=== PATIENT | female | born 1935 | race Caucasian/White ===

== ENCOUNTER 2019-05-24 16:47 | Emergency (ER) | payer MEDICARE, OTHER ==
--- OUTSIDE RECORDS SUMMARY | 2019-05-24 16:59 | XMS REPORT | Continuity of Care Document ---
:1935 External Reference #:[id number] Author Name CHRISTIAN Diamond (transmitted by agent of provider Tanner Mercado) Address [address] [place] [address] Care Team Providers Name Role Phone Vladimir Jefferson M.D. - Urology Care Team Information Medical Bill Processor Mary Navarro PA - Physician Urgent Care Nurse Practitioner Care Team Information Medical Bill Processor [phone] Problems Active Problems Provider Date Fracture of bone of hip region Onset: 04/02/2018 Chronic obstructive lung disease Onset: 04/02/2018 Essential hypertension Onset: 01/30/2011 Hyperlipidemia Onset: 01/30/2011 Hypothyroidism Onset: 01/30/2011 Gastroesophageal reflux disease Onset: 11/03/2017 Marshall's esophagus Onset: 11/03/2017 Gastro-esophageal reflux disease with esophagitis Onset: 11/03/2017 Osteoporosis Onset: 01/30/2011 Hypo-osmolality and or hyponatremia Onset: 01/30/2011 Recurrent urinary tract infection CHRISTIAN Diamond Onset: 10/25/2018 Bladder muscle dysfunction - overactive CHRISTIAN Diamond Onset: 10/25/2018 Hearing loss CHRISTIAN Diamond Onset: 10/25/2018 Asthma CHRISTIAN Diamond Onset: 01/04/2019 Urinary tract infectious disease CHRISTIAN Diamond Onset: 01/04/2019 Difficulty breathing CHRISTIAN Diamond Onset: 04/30/2019 Altered mental status CHRISTIAN Diamond Onset: 04/30/2019 Muscle weakness CHRISTIAN Diamond Onset: 04/30/2019 Myocardial infarction CHRISTIAN Diamond Onset: 04/30/2019 Acute renal failure syndrome CHRISTIAN Diamond Onset: 04/30/2019 Congestive heart failure CHRISTIAN Diamond Onset: 04/30/2019 Social History Type Date Description Comments Sex Unknown ETOH Use Denies alcohol use Tobacco Use Reviewed: 07/16/16 Patient has never smoked Smoking Status Reviewed: 12/30/18 Patient has never smoked Exercise Type/Frequency 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 Allergies, Adverse Reactions, Alerts Active Allergies Reaction Severity Comments Date Penicillins Free Text Severe 04/03/2018 Ciprofloxacin 04/03/2018 Sulfa Antibiotics Free Text Moderate 04/03/2018 Clarithromycin Free Text Moderate 04/03/2018 Adhesives Free Text Moderate 04/03/2018 Medications Active Medications SIG Qnty Indications Ordering Date Provider Aspirin Childrens 1 by mouth every 30units [place] 05/12/2019 81mg day MD Aman Chewtabs Doxycycline 1 by mouth twice a 20caps L03.116 [place] 05/12/2019 Monohydrate day MD Aman 100mg Capsules Compression Hose wear daily as 2Pairs I87.2 [place] 05/12/2019 directed MD Aman Omeprazole Take One Capsule 90caps [place] 11/26/2012 20mg By Mouth Every Day MD Aman Capsules DR Edgard Singer one inhalation 1units J44.9 [place] twice a day MD Aman 500-50mcg/Dose Aerosol Ventolin HFA J44.9 Unknown 108(90Base) mcg/Act Aerosol Metoprolol Tartrate Take One Tablet By 180tabs I10 Deshawn Mouth Twice A Day MD Aman 25mg Tablets Levothyroxine Sodium Take One Tablet By 90tabs E03.9 [place] Mouth Every Day MD Aman 50mcg Tablets Montelukast Sodium take one tablet by 90tabs Deshawn 10mg mouth every day MD Aman Tablets Atorvastatin Calcium Unknown 80mg Tablets Furosemide Unknown 40mg Tablets Eliquis Take One Tablet By Unknown 2.5mg Tablets Mouth Two Times A Day History Medications Levaquin Deshawn Newton, 12/21/2018 - 500mg Tablets 12/29/2018 Nitrofurantoin 1 by mouth 20caps N39.0 Deshawn Newton 12/15/2018 - Macrocrystal twice a day 12/29/2018 100mg Capsules Immunizations CPT Code Status Date Vaccine Lot # 44417 Given 01/11/2019 Fluzone High Dose 31053 Given 12/25/2017 Fluzone High Dose 11700 Given 12/19/2016 Pneumococcal Conjugate Vaccine 13 Valent For Intramuscular Use 78954 Given 12/19/2016 Fluzone High Dose 60892 Given 12/19/2015 Fluzone High Dose 43517 Given 01/05/2014 Fluzone High Dose 55475 Given 01/07/2013 Influenza Virus 3Yrs & Over 51192 Given 05/02/2011 Tdap - Tetanus/Diptheria/Acellular Pertussis 68666 Given 02/20/2010 Tetanus And Diptheria (Td) For Adult Use Preservative Free 46254 Given 12/29/2007 Pneumonia Vaccine 45164 Given 12/29/2007 Influenza Virus 3Yrs & Over 22921 Given 01/30/2006 Influenza Virus 3Yrs & Over 03986 Given 01/08/2005 Influenza Virus 3Yrs & Over 53233 Given 01/07/2002 Influenza Virus 3Yrs & Over 61137 Given 01/07/2000 Influenza Virus 3Yrs & Over 49304 Given 02/08/1999 Influenza Virus 3Yrs & Over 88697 Given 04/07/1995 Pneumonia Vaccine Vital Signs Date Vital Result Comment 05/12/2019 11:08am Weight 145.25 lb Heart Rate 87 /min BP Systolic Sitting 140 mmHg BP Diastolic Sitting 60 mmHg Body Temperature 97.8 F O2 % BldC Oximetry 96 % 04/30/2019 9:14am Heart Rate 48 /min BP Systolic Sitting 108 mmHg BP Diastolic Sitting 60 mmHg O2 % BldC Oximetry 90 % Results Test Acquired Date Facility Test Result H/L Range Note Urine Culture And 12/15/2018 [facility] Urine SEE RESULT 1 , [address] [place] [address] [phone] 1 [id number] 2 SEE RESULT BELOW Name: GIANNA MARTINES : [address]: Mary GONZALES Acct: [id number] Unit: [id number] AGE: 83 Location: [facility] Re12/15/18 SEX: F Status: REG REF SPEC: [id number] GEORGE: 12/15/18-[address]: Mary GOZNALES REQ: [id number] RECD: 12/15/18 STATUS: COMP _ SOURCE: URINE SPDESC: ORDERED: Urine Culture COMMENTS: [id number] QUERIES: Urine Source: Random Procedure Result Reported Site Urine Culture Final 12/19/18- 0759 ML Organism 1 STREP AGALACTIAE - (GROUP B) [place] Count >100,000 (Many) CFU/ML Susceptibility testing of penicillins and other B-lactams approved by FDA for treatment of Streptococcus pyogenes (Group A Strep) and Streptococcus agalactiae (Group B Strep) is not necessary for clinical purposes and need not be done routinely, since as with vancomycin, resistant strains have not been recognized. (CLSI L259-Q00;p.66) Positive isolates will be saved for one week. Please call the Microbiology Laboratory if further susceptibility testing is needed. * This is an updated result. * A prior result that was reported as final has been changed. Report corrected on: 12/19/18 0758 1. STREP AGALACTIAE - (GROUP B) M.I.C. RX --------- ------ Ampicillin <=0.25 S Penicillin <=0.12 S Levofloxacin 1 S Linezolid 2 S * Moxifloxacin 0.5 S * Quinupristin/Dalfopristin <=0.25 S CONTINUED ON NEXT PAGE DEPARTMENT OF PATHOLOGY, [address] [place] [address] Gabriel Colorado M.D. Director JAMES # [id number] Patient: MARTINESGIANNA [id number] (Continued) Specimen: [id number] Collected: 12/15/18-1615 Received: 12/15/18 (Continued) Procedure Result Reported Site Urine Culture Final (continued) 12/19/18- 075 1. STREP AGALACTIAE - (GROUP B) (continued) M.I.C. RX --------- ------ Tetracycline >=16 R Tigecycline <=0.12 S Vancomycin <=0.5 S Imipenem-Deduced S * Ampicillin/Sulbactam-Deduced S Cefazolin-Deduced S * These antibiotics are not available in the [facility] Formulary Contact the Microbiology Department for any additional antibiotic reporting. * ML - Main Lab . END OF REPORT DEPARTMENT OF PATHOLOGY, [address] [place] [address] Gabriel Colorado M.D. Director [facility] # [id number] Procedures Date Code Description Status 01/18/2019 [id number] Diabetic Retinal Eye Exam Completed 04/03/2016 [id number] Mammogram Completed 11/21/2013 [id number] Colonoscopy Completed Medical Devices Description No Information Available Encounters Type Date Location Provider Dx Diagnosis Office Visit 04/30/2019 [facility] Primary Care CHRISTIAN Diamond M62.81 Muscle weakness 9:15a (generalized) R06.00 Dyspnea, unspecified R00.1 Bradycardia, unspecified R41.82 Altered mental status, unspecified Office Visit 01/19/2019 9:00a [facility] Dermatology AT Roger Dao, 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 L82.1 Other seborrheic keratosis Z08 Encntr for follow-up exam after trtmt for malignant neoplasm Z85.828 Personal history of other malignant neoplasm of skin Office Visit 12/29/2018 2:15p [facility] Primary Care CHRISTIAN Diamond N39.0 Urinary tract infection, site not specified H90.2 Conductive hearing loss, unspecified Office Visit 12/15/2018 3:45p [facility] Primary CHRISTIAN Diamond R35.0 Frequency of Care micturition N39.0 Urinary tract infection, site not specified Assessments Date Code Description Provider 05/12/2019 I21.9 Acute myocardial infarction, unspecified CHRISTIAN Diamond 05/12/2019 I50.9 Heart failure, unspecified CHRISTIAN Diamond 05/12/2019 N17.9 Acute kidney failure, unspecified CHRISTIAN Diamond 05/12/2019 I87.2 Venous insufficiency (chronic) (peripheral) CHRISTIAN Diamond 05/12/2019 L03.116 Cellulitis of left lower limb CHRISTIAN Diamond 04/30/2019 M62.81 Muscle weakness CHRISTIAN Diamond 04/30/2019 R06.00 Dyspnea CHRISTIAN Diamond 04/30/2019 R00.1 Bradycardia CHRISTIAN Diamond 04/30/2019 R41.82 Altered mental status CHRISTIAN Diamond 04/05/2019 Z00.01 Adult health examination CHRISTIAN Diamond 01/19/2019 L20.84 Intrinsic (allergic) eczema Roger Dao MD 01/19/2019 L82.1 Other seborrheic keratosis Roger Dao MD 01/19/2019 Z08 Encounter for follow-up examination after Roger Dao MD completed treatment for malignant neoplasm 01/19/2019 Z85.828 Personal history of other malignant neoplasm of Roger Dao MD skin 12/29/2018 N39.0 Urinary tract infection, site not specified CHRISTIAN Diamond 12/29/2018 H90.2 Conductive hearing loss, unspecified CHRISTIAN Diamond 12/15/2018 R35.0 Frequency of micturition CHRISTIAN Diamond 12/15/2018 N39.0 Urinary tract infection, site not specified CHRISTIAN Diamond Plan of Treatment Future Appointment(s):05/26/2019 8:00 am - CHRISTIAN Diamond at [facility] Primary Care08/2019 10:15 am - CHRISTIAN Diamond at [facility] Primary Care01/19/2020 8:00 am - Roger Dao MD at [facility] Dermatology AT Fnqdthys02/12/2020 - Mary Navarro PAI21.9 Acute myocardial infarction, unspecifiedReferral:No Doctor SelectedNo Doctor SelectedNo Doctor SelectedFollow up:2 xxzecO34.9 Heart failure, gltjwhqmlytT17.9 Acute kidney failure, unspecifiedNew Labs:Basic Metabolic Panel , Ordered: 05/12/19Magnesium, Ordered: 05/12/19Calcium, Ordered: 05/12/19Liver Function Panel, Ordered: 05/12/19CBC Auto Diff, Ordered: 05/12/19I87.2 Venous insufficiency (chronic) (peripheral)New Medication:Compression Hose - wear daily as rmvzwywwQ33.116 Cellulitis of left lower limbNew Medication: Doxycycline Monohydrate 100 mg - 1 by mouth twice a day Functional Status Functional Condition Comment Date Status Bifocal glasses Active Hearing Aid in Both ears Active Mental Status Description No Information Available Referrals Refer to Reason for Referral Status Appt Date Created Created Created
--- OUTSIDE RECORDS SUMMARY | 2019-05-24 16:59 | XMS REPORT | Continuity of Care Document ---
:1935 External Reference #:[id number] Author Name Susu Delgado, MSN, MATTRESS FILLING MACHINE TENDER Address [address] [place] [address] Care Team Providers Name Role Phone Mary Navarro PA - Physician Slater Apprentice Care Team Information Fire Suppression Captain Problems Active Problems Provider Date Pure hypercholesterolemia Onset: 12/08/2012 Bradycardia, unspecified Susu Delgado, Onset: 05/19/2019 MSN, M[employer]ESS FILLING MACHINE TENDER Coronary arteriosclerosis in tribe Susu Delgado, Onset: 05/19/2019 artery MSN, M[employer]ESS FILLING MACHINE TENDER Heart failure, unspecified Susu Delgado, Onset: 05/19/2019 MSN, MATTRESS FILLING MACHINE TENDER Chronic kidney disease stage 4 Susu Delgado, Onset: 05/19/2019 MSN, MATTRESS FILLING MACHINE TENDER Bladder muscle dysfunction - overVladimir Russo M.D. Onset: 2018 Essential hypertension Susu Delgado, Onset: 03/14/2015 MSN, MATTRESS FILLING MACHINE TENDER Edema River Hood M.D., Onset: 02/28/2014 [facility] Carotid artery occlusion River Hood M.D., Onset: 01/06/2013 [facility] Aortic valve disorder River Hood M.D., Onset: 01/06/2013 [facility] Cardiovascular symptoms River Hood M.D., Onset: 12/08/2012 [facility] Electrocardiogram abnormal River Hood M.D., Onset: 12/08/2012 [facility] Benign essential hypertension River Hood M.D., Onset: 12/08/2012 [facility] Social History Type Date Description Comments Sex Unknown Tobacco Use Start: Unknown Never Smoked Cigarettes Smoking Status Reviewed: 05/19/19 Never Smoked Cigarettes ETOH Use Denies alcohol use Tobacco Use Start: Unknown Patient denies history of smoking Recreational Drug Use Denies Drug Use Allergies, Adverse Reactions, Alerts Active Allergies Reaction Severity Comments Date MSG 10/13/2012 Penicillin 12/08/2012 Cipro 12/08/2012 Sulfa Drugs 12/08/2012 Prilosec 12/08/2012 Biaxin 12/08/2012 Aspirin stomach upset 01/06/2013 Inactive Allergies NKDA 10/13/2012 Medications Active Medications SIG Qnty Indications Ordering Date Provider Metolazone take one tablet by 30tabs I50.9 Susu Delgado 05/19/2019 2.5mg mouth 1/2 hour prior EMELY Greene, Tablets to furosemide once M[employer]ESS FILLING MACHINE TENDER daily as directed Rohan Stockings Left leg 2units Susu Delgado 05/17/2019 measurements are EMELY Greene, left calf 37 cm, MATTRESS FILLING MACHINE TENDER ankle 27 cm, and instep 25.5 cm, Right leg is calf 36.7, ankle 27.3 cm and instep Omeprazole 1 tab qd Unknown 20mg Capsules Levothroid 1 tab qd Unknown 50mcg Tablets Ventolin HFA as needed Unknown 108(90Base) mcg/Act Aerosol [place]-3 Fish Oil 1 qd Unknown 1000mg Capsules Multi For Her 1 qd Unknown Capsules Singulair 1 by mouth every day Unknown 10mg Tablets Advair Diskus take 1 puff twice Unknown daily. 250-50mcg/Dose Aerosol Atorvastatin Calcium 1 by mouth every day Unknown 80mg Tablets Furosemide 1 by mouth every day Unknown 40mg Tablets Metoprolol Tartrate take one tablet by Unknown mouth twice a day 50mg Tablets Eliquis take one tablet by Unknown 2.5mg Tablets mouth twice a day Aspirin 81 Low Dose 1 po daily Unknown 81mg Chewtabs Calcium 500 + D 1 po daily Unknown [id number] Tablets Immunizations Description No Information Available Vital Signs Date Vital Result Comment 05/19/2019 10:38am BP Systolic Sitting Right Arm 115 mmHg BP Diastolic Sitting Right Arm 49 mmHg Heart Rate 82 /min Respiratory Rate 18 /min Height 61 inches 5'1" Weight 154.00 lb BMI (Body Mass Index) 29.1 kg/m2 BSA (Body Surface Area) 1.69 m2 [place] body weight in kilograms 48 kg O2 % BldC Oximetry 99 % ra Ejection Fraction 55-60% 11/25/2018 9:12am BP Systolic 125 mmHg BP Diastolic 55 mmHg Body Temperature 98.3 F Heart Rate 60 /min Respiratory Rate 16 /min Height 61 inches 5'1" Weight 133.00 lb Pain Level 3 lower abdomen BMI (Body Mass Index) 25.1 kg/m2 BSA (Body Surface Area) 1.59 m2 [place] body weight in kilograms 48 kg O2 % BldC Oximetry 98 % Results Test Acquired Date Facility Test Result H/L Range Note Basic Metabolic 05/05/2019 N2N/CCD Import Sodium 134 mmol/L Low 136 - 145 Panel Potassium 3.3 mmol/L Low 3.6 - 5.2 Chloride 91 mmol/L Low 100 - 108 Co2 34 mmol/L High 22 - 31 Anion Gap 9 mmol/L 7 - 16 Urea nitrogen 67 mg/dL High 7 - 24 Creatinine 2.50 mg/dL High 0.60 - 1.00 BUN/Creatinine Ratio 26.8 High 10.0 - 20.0 Ratio Glucose 99 mg/dL 70 - 99 Calcium 8.8 mg/dL 8.4 - 10.2 GFR MDRD Non Af Amer 18 Low >59 ml/min/1.73m2 GFR MDRD Af Amer 22 Low >59 ml/min/1.73m2 Glom Filt Rate, Est See Notes 1 CBC 05/05/2019 N2N/CCD Import WBC 9.1 10*3/uL 4.1 - 11.0 RBC 3.11 10*6/uL Low 4.00 - 5.40 Hemoglobin 9.7 g/dL Low 12.0 - 16.0 Hematocrit 28.2 % Low 36.0 - 47.0 MCV 90.9 fL 80.0 - 95.0 MCH 31.1 pg 27.0 - 32.0 MCHC 34.3 g/dL 32.0 - 36.0 RDW 14.1 % 10.5 - 14.5 Platelets 287 10*3/uL 150 - 450 MPV 7.3 fL 7.1 - 10.7 PTH, intact (non-Or 05/04/2019 N2N/CCD Import PTH 308.3 pg/mL High 18.5 - only) 88.0 Vitamin D 25 hydroxy 05/04/2019 N2N/CCD Import Vit D, 45 ng/mL 31 - 100 2 25-Hydroxy Comprehensive 05/03/2019 N2N/CCD Import Sodium 133 mmol/L Low 136 - 145 Metabolic Panel Potassium 3.9 mmol/L 3.6 - 5.2 Chloride 93 mmol/L Low 100 - 108 Co2 27 mmol/L 22 - 31 Anion Gap 13 mmol/L 7 - 16 Urea nitrogen 87 mg/dL Critical high 7 - 24 3 Creatinine 3.18 mg/dL High 0.60 - 1.00 BUN/Creatinine Ratio 27.4 High 10.0 - 20.0 Ratio Glucose 100 mg/dL High 70 - 99 Calcium 8.6 mg/dL 8.4 - 10.2 Protein, Total 6.0 g/dL Low 6.4 - 8.2 Albumin 2.7 g/dL Low 3.2 - 4.5 Globulin 3.3 g/dL 2.7 - 4.3 Alb/Glob ratio 0.8 Ratio Alkaline Phosphatase 163 U/L High 45 - 117 Bilirubin, Total 0.4 mg/dL 0.0 - 1.0 Ast 69 U/L High 11 - 39 Alt 115 U/L High 12 - 78 GFR MDRD Non Af Amer 14 Low >59 ml/min/1.73m2 GFR MDRD Af Amer 17 Low >59 ml/min/1.73m2 Glom Filt Rate, Est See Notes 4 Ferritin 05/03/2019 N2N/CCD Import Ferritin 55 ng/mL 8 - 252 Iron Panel 05/03/2019 N2N/CCD Import Iron 16 g/dL Low 35 - 150 Uibc 270 g/dL 130 - 375 Tibc 286 g/dL 250 - 450 Iron Saturation 6 % Low 12 - 50 Protein / creatinine ratio, 05/02/2019 N2N/CCD Import Protein, Ur 31 mg/dL 5 urine Creatinine, Ur 151.00 mg/dL Urine TP/CR ratio 0.21 High 0.00 - 0.20 Ratio Urine electrolytes 05/02/2019 N2N/CCD Import Sodium Urine Random <5 mmol /L Potassium Urine Random 68.3 mmol/L Chloride, Ur <10 mmol/L aPTT 05/02/2019 N2N/CCD Import aPTT 47.2 s High 22.0 - 34.3 Osmolality 05/01/2019 N2N/CCD Import Osmolality,Se 300 280 - 300 rum mosm/kg Troponin I 05/01/2019 N2N/CCD Import Troponin I 27.40 Critical high < 0.05 6 ng/mL Creatinine, 05/01/2019 N2N/CCD Import Creatinine, 224.00 urine, random urine, random mg/dL Urinalysis 05/01/2019 N2N/CCD Import Color, Ua Latonya 7 Appearance Cloudy Specific [place], Ua 1.020 1.003 - 1.030 pH, Urine 5.0 5.0 - 7.5 Leukocyte Esterase 2+ Abnormal Negative Nitrite, Ua Negative Negative Protein, Ua 1+ Abnormal Negative Glucose, Ua Negative Negative Ketones, Ua Negative Negative Urobilinogen, Ua 0.2 mg/dL 0 - 1.0 Bilirubin, Ua 1+ Abnormal Negative 8 Blood, Ua Negative Negative Osmolality, urine 05/01/2019 N2N/CCD Import Osmolality, Ur 448 mosm/kg 50 - 1,200 Urine microscopic 05/01/2019 N2N/CCD Import WBC, Ua * 10-25 0 - 5 [HPF] RBC, Ua None Seen 0 - 2 [HPF] Epithelial cells Ua 1+ [HPF] Bacteria, Ua 1+ [HPF] Amorphous, Ua 1+ [HPF] TSH 04/30/2019 N2N/CCD Import TSH, High 7.127 High 0.360 - 9 Sensitivity 4.170 mIU/L T4, free 04/30/2019 N2N/CCD Import Free T4 1.36 ng/dL 0.76 - 10 1.46 Urine Culture 11/25/2018 PSYCHIATRIC Urine Culture URETHRAL [address] [place] [address] [phone] Quantity 10,000 - 100,000 <SEE NOTE> 12 Urine Dipstick 11/25/2018 [facility] Inhouse Ua Color yellow Yellow Ua Clarity clear Clear Ua Leuko negative Negative Ua Nitrite negative Negative Ua Urobilinogen 0.2 0.2 - 1.0 E.U./dL Ua Protein 30 High Negative Ua PH 5.5 Low 6.5-7.5 Ua Blood negative Negative Ua Specific [place] 1.020 1.010-1.030 Ua Ketones 5 High Negative Ua Bilirubin 1 High Negative Ua Glucose negative Negative 1 NORMAL KIDNEY FUNCTION OR MILD DISEASE - GFR >OR= 60 CHRONIC KIDNEY DISEASE - GFR 15 - 59 RENAL FAILURE - GFR <15 Est. GFR calculation based on the MDRD study equation, which assumes a steady state for creatinine. Est. GFR should not be used for medication dosing. 2 A REVIEW OF THE LITERATURE SUGGESTS THE FOLLOWING RANGES FOR THE CLASSIFICATION OF 25-OH VITAMIN D STATUS: VITAMIN D STATUS 25-OH VITAMIN D DEFICIENCY <20 NG/ML INSUFFICIENCY 20-30 NG/ML SUFFICIENCY 31 - 100 NG/ML TOXICITY > 100 NG/ML A PEDIATRIC REFERENCE RANGE HAS NOT BEEN ESTABLISHED USING THIS METHOD. 3 CONSISTENT WITH PREVIOUS RESULTS 4 NORMAL KIDNEY FUNCTION OR MILD DISEASE - GFR >OR= 60 CHRONIC KIDNEY DISEASE - GFR 15 - 59 RENAL FAILURE - GFR <15 Est. GFR calculation based on the MDRD study equation, which assumes a steady state for creatinine. Est. GFR should not be used for medication dosing. 5 URINE PROTEIN MAY BE FALSELY ELEVATED DURING TREATMENT WITH AMINOGLYCOSIDES DUE TO METHOD INTERFERENCE. 6 Less than 0.05: Myocardial injury unlikely Greater than or equal to 0.05: Highly suggestive of myocardial injury Correlation with rise and/or fall of serial troponins, clinical symptoms and ECG changes is necessary. ALERTED CRITICAL [id number] ON 04.30.19 AT 2358 [place] [id number] 7 PERFORMED AT [address] [place] [address] 8 INTERFERING SUBSTANCES MAY CAUSE FALSE POSITIVE BILIRUBIN, WHICH HAS BEEN SHOWN TO BE CLINICALLY INSIGNIFICANT. CORRELATE WITH OTHER TESTING. 9 PERFORMED AT [address] [place] [id number] 10 PERFORMED AT [address] [place] [id number] 11 N39.0 12 10,000 - 100,000 CFU/mL Procedures Date Code Description Status 05/19/2019 41279 EKG-Tracing And Report Completed 04/30/2019 52673 Echocardiogram Complete Completed Medical Devices Description No Information Available Encounters Type Date Location Provider Dx Diagnosis Office Visit 05/19/2019 Cardiology Office Susu Delgado I50.9 Heart failure , 10:40a EMELY Greene, unspecified M[employer]ESS F[employer]ING MACHINE TENDER I25.10 Athscl heart disease of tribe coronary artery w/o ang pctrs I35.0 Nonrheumatic aortic (valve) stenosis I65.23 Occlusion and stenosis of bilateral carotid arteries I10 Essential (primary) hypertension E78.00 Pure hypercholesterolemia, unspecified N18.4 Chronic kidney disease, stage 4 (severe) R00.1 Bradycardia, unspecified Office Visit 11/25/2018 9:00a Urology Buddy Reynolds, N39.0 Urinary tract PA infection, site not specified Assessments Date Code Description Provider 05/19/2019 I50.9 Heart failure, unspecified Susu Delgado MSN, MATTRESS FILLING MACHINE TENDER 05/19/2019 I25.10 Atherosclerotic heart disease of Susu Delgado MSN, tribe coronary artery without angina M[employer]ESS F[employer]ING MACHINE TENDER pectoris 05/19/2019 I35.0 Nonrheumatic aortic (valve) stenosis Susu Delgado MSN, MATTRESS FILLING MACHINE TENDER 05/19/2019 I65.23 Occlusion and stenosis of bilateral Susu Delgado MSN, carotid arteries MATTRESS FILLING MACHINE TENDER 05/19/2019 I10 Essential (primary) hypertension Susu Delgado MSN, MATTRESS FILLING MACHINE TENDER 05/19/2019 E78.00 Pure hypercholesterolemia, unspecified Susu Delgado MSN, MATTRESS FILLING MACHINE TENDER 05/19/2019 N18.4 Chronic kidney disease, stage 4 Susu Delgado MSN , (severe) M[employer]ESS FILLING MACHINE TENDER 05/19/2019 R00.1 Bradycardia, unspecified Susu Delgado MSN, MATTRESS FILLING MACHINE TENDER 04/30/2019 R94.31 Abnormal electrocardiogram [ECG] [EKG] Daniel Polanco MD 04/30/2019 R00.1 Bradycardia, unspecified Daniel Polanco MD 04/30/2019 R53.1 Weakness Daniel Polanco MD 04/30/2019 I35.0 Nonrheumatic aortic (valve) stenosis Daniel Polanco MD 11/25/2018 N39.0 Urinary tract infection, site not Buddy Reynolds PA specified Plan of Treatment Future Appointment(s):05/27/2019 2:00 pm - Susu Delgado, MSN, MATTRESS FILLING MACHINE TENDER at Cardiology Bjevuv9605/19/2019 - Susu Delgado, EMELY, FNPI50.9 Heart failure, unspecifiedNew Medication:Metolazone 2.5 mg - take one tablet by mouth 1/2 hour prior to furosemide once daily as directedNew Labs:Comprehensive Metabolic Panel, Ordered: 05/19/19New Orders:Echocardiogram, Scheduled: Comments:Start metolazone. CMP in one week. Echo to re-evaluate LVFI25.10 Atherosclerotic heart disease of tribe coronary artery without angina pectorisComments:No changes.I35.0 Nonrheumatic aortic (valve) stenosisComments: We will re-evaluate with an echo.I65.23 Occlusion and stenosis of bilateral carotid arteriesComments:Monitor.I10 Essential (primary) hypertensionComments: No changes.E78.00 Pure hypercholesterolemia, unspecifiedComments:No changes.N18.4 Chronic kidney disease, stage 4 (severe)Comments:I will refer them to Dr. Jean Baptiste or Dr. Galvez.R00.1 Bradycardia, unspecifiedComments: Monitor.AllFollow up:Follow up visit in one week. Functional Status Functional Condition Comment Date Status Glasses Active Independent with all ADL's Active Mental Status Description No Information Available Referrals Description No Information Available
--- OUTSIDE RECORDS SUMMARY | 2019-05-24 16:59 | XMS REPORT | Continuity of Care Document ---
:1935 External Reference #:[id number] Author Name CHRISTIAN Diamond (transmitted by agent of provider Makenzie Alfaro) Address [address] [place] [address] Care Team Providers Name Role Phone Vladimir Jefferson M.D. - Urology Care Team Information Punch Press Operator [phone] Mary Navarro PA - Physician Natural Resources Faculty Member Care Team Information Punch Press Operator Problems Active Problems Provider Date Fracture of [...] tract infectious disease CHRISTIAN Diamond Onset: 01/04/2019 Social History Type Date Description Comments Sex [...] Medications SIG Qnty Indications Ordering Date Provider Crestor 1 by mouth every 30tabs Deshawn 10/20/2013 20mg Tablets day MD Aman Amlodipine Besylate take one tablet by 90tabs Deshawn 03/04/2013 mouth every day MD Aman 10mg Tablets Omeprazole Take One Capsule 90caps Deshawn 11/26/2012 20mg By Mouth Every Day MD Aman Capsules DR Edgard Singer one inhalation 1units J44.9 Deshawn twice a day MD Aman 500-50mcg/Dose Aerosol Ventolin HFA J44.9 Unknown 108(90Base) mcg/Act Aerosol Metoprolol Tartrate Take One Tablet By 180tabs I10 Deshawn Mouth Twice A Day MD Aman 25mg Tablets Levothyroxine Sodium Take One Tablet By 90tabs E03.9 Deshawn Mouth Every Day MD Aman 50mcg Tablets Montelukast Sodium take one tablet by 90tabs Deshawn 10mg mouth every day MD Aman Tablets History Medications Levaquin Deshawn Newton, 12/21/2018 - 500mg Tablets 12/29/2018 Nitrofurantoin 1 by mouth 20caps N39.0 Deshawn Newton, 12/15/2018 - Macrocrystal twice a day 12/29/2018 100mg Capsules Immunizations CPT Code Status Date Vaccine Lot # [id number] Given 01/11/2019 Fluzone High Dose 84021 Given 12/25/2017 Fluzone High Dose 77699 Given 12/19/2016 Pneumococcal Conjugate Vaccine 13 Valent For Intramuscular Use 60604 Given 12/19/2016 Fluzone High Dose 27506 Given 12/19/2015 Fluzone High Dose 86601 Given 01/05/2014 Fluzone High Dose 77486 Given 01/07/2013 Influenza Virus 3Yrs & Over 29768 Given 05/02/2011 Tdap - Tetanus/Diptheria/Acellular Pertussis 50238 Given 02/20/2010 Tetanus And Diptheria (Td) For Adult Use Preservative Free 67922 Given 12/29/2007 Pneumonia Vaccine 30628 Given 12/29/2007 Influenza Virus 3Yrs & Over 06743 Given 01/30/2006 Influenza Virus 3Yrs & Over 80056 Given 01/08/2005 Influenza Virus 3Yrs & Over 96739 Given 01/07/2002 Influenza Virus 3Yrs & Over 68188 Given 01/07/2000 Influenza Virus 3Yrs & Over 54522 Given 02/08/1999 Influenza Virus 3Yrs & Over 75914 Given 04/07/1995 Pneumonia Vaccine Vital Signs Date Vital Result Comment 04/05/2019 9:36am Height 59 inches 4'11" Weight 131.25 lb BP Systolic Sitting 120 mmHg BP Diastolic Sitting 50 mmHg Respiratory Rate 12 /min Body Temperature 98.0 F BMI (Body Mass Index) 26.5 kg/m2 12/29/2018 1:59pm Weight 136.06 lb BP Systolic Sitting 128 mmHg BP Diastolic Sitting 70 mmHg Results Test Acquired Date Facility Test Result H/L Range Note Urine Culture And 12/15/2018 [facility] Urine SEE RESULT 1 , [address] [place] [address] [phone] Urine Culture And 10/21/2018 [facility] Urine SEE RESULT 3 , [address] Culture [place], [place] [id number] [phone] Urine Culture And 10/08/2018 [facility] Urine SEE RESULT 5 , [address] Culture [place]OW [place], [place] [address] [phone] 1 [id number] 2 SEE RESULT BELOW Name: MARTINESGIANNA : [address]: Mary GONZALES Acct: [id number] Unit: [id number] AGE: 83 Location: [facility] Re12/15/18 SEX: F Status: REG REF SPEC: [id number] GEORGE: 12/15/18-1615 [facility] DR: Mary GONZALES REQ: [id number] RECD: 12/15/18 STATUS: COMP _ [facility]: Urine Culture COMMENTS: [id number] QUERIES: Urine Source: Random Procedure Result Reported Site Urine Culture Final 12/19/18- 0759 ML Organism 1 STREP AGALACTIAE - (GROUP B) [place] Count >100,000 (Many) CFU/ML Susceptibility testing of penicillins and other B-lactams approved by FDA for treatment of Streptococcus pyogenes (Group A Strep) and Streptococcus agalactiae (Group B Strep) is not necessary for clinical purposes and need not be done routinely, since as with vancomycin, resistant strains have not been recognized. (CLSI R336-S44;p.66) Positive isolates will be saved for one [...] CONTINUED ON NEXT PAGE DEPARTMENT OF PATHOLOGY, [address] [place] [address] Gabriel Colorado M.D. Director JEFFAR # [id number] Patient: MARTINESGIANNA [id number] (Continued) Specimen: [id number] Collected: 12/15/18 Received: 12/15/18-2001 (Continued) Procedure Result Reported Site Urine Culture Final (continued) 12/19/18- 0759 1. STREP AGALACTIAE - (GROUP B) (continued) AndrewCBrendan RX --------- ------ Tetracycline >=16 R Tigecycline <=0.12 S Vancomycin <=0.5 S Imipenem-Deduced S * Ampicillin/Sulbactam-Deduced S Cefazolin-Deduced S * These antibiotics are not available in the [facility] Formulary Contact the Microbiology Department for any additional antibiotic reporting. * ML - [facility] . END OF REPORT DEPARTMENT OF PATHOLOGY, [address] [place] [address] Gabriel Colorado M.D. Director [facility] # [id number] 3 [id number] 4 SEE RESULT BELOW Name: GIANNA MARTINES : [address]: Mary GONZALES Acct: [id number] Unit: [id number] AGE: 83 Location: [facility] Re10/21/18 SEX: F Status: REG REF SPEC: [id number] GEORGE: 10/21/18-1158 [facility] DR: Mary GONZALES REQ: [id number] RECD: 10/21/18 STATUS: COMP _ SOURCE: URINE SPDESC: ORDERED: Urine Culture COMMENTS: [id number] Urine Source: Random Procedure Result Reported Site Urine Culture Final 10/22/18- 1236 ML No growth of clinically significant organisms * - [facility] . END OF REPORT DEPARTMENT OF PATHOLOGY, [address] [place] [address] Gabriel Colorado M.D. Director [facility] # [id number] 5 [id number] 6 SEE RESULT BELOW Name: SEBASTIÁNGIANNA A : [address]: Mary GONZALES Acct: [id number] Unit: [id number] AGE: 83 Location: [facility] Re10/08/18 SEX: F Status: REG REF SPEC: [id number] GEORGE: 10/08/[address]: Mary GONZALES REQ: [id number] RECD: 10/08/18 STATUS: COMP _ SOURCE: URINE SPDESC: ORDERED: Urine Culture COMMENTS: [id number] QUERIES: Urine Source: Random Procedure Result Reported Site Urine Culture Final 10/09/18- 1615 ML No Growth (<1,000 CFU/mL) * ML - Main Lab . END OF REPORT DEPARTMENT OF PATHOLOGY, [address] [place] [address] Gabriel Colorado M.D. 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 L82.1 Other seborrheic keratosis Z08 Encntr for follow-up exam after trtmt for malignant neoplasm Z85.828 Personal history of other malignant neoplasm of skin Office Visit 12/29/2018 2:15p [facility] Primary Care CHRISTIAN Diamond N39.0 Urinary tract infection, site not specified H90.2 Conductive hearing loss, unspecified Office Visit 12/15/2018 3:45p [facility] Primary CHRISTIAN Diamond R35.0 Frequency of Care micturition N39.0 Urinary tract infection, site not specified Office Visit 10/21/2018 11:30a [facility] Primary Care CHRISTIAN Diamond R35.1 Nocturia R30.0 Dysuria R35.0 Frequency of micturition Office Visit 10/08/2018 2:15p [facility] Primary Care CHRISTIAN Diamond N39.0 Urinary tract infection, site not specified Assessments Date Code Description Provider 01/19/2019 L20.84 Intrinsic (allergic) eczema Roger Dao [...] tract infection, site not specified CHRISTIAN Diamond 10/21/2018 R35.1 Nocturia CHRISTIAN Diamond 10/21/2018 R30.0 Dysuria CHRISTIAN Diamond 10/21/2018 R35.0 Frequency of micturition CHRISTIAN Diamond 10/08/2018 N39.0 Urinary tract infection, site not specified CHRISTIAN Diamond Plan of Treatment Future Appointment(s):07/05/2019 10:15 am - CHRISTIAN Diamond at [facility] Primary Care 8:00 am - Roger Dao MD at [facility] Dermatology [facility] Functional Status Functional Condition Comment Date Status Bifocal glasses Active Hearing Aid in Both ears Active Mental Status Description No Information Available Referrals Refer to Reason for Referral Status Appt Date Vladimir Jefferson M.D. Please arrive at the time listed Received Complete on your referral, this is your check in time. Please be sure to bring your insurance cards & photo ID as well as any copayment associated with the insurance. If you have any questions or concerns, please feel free to contact Mandi @ [phone]. Thank you. [address] [place] [address] [phone]
--- OUTSIDE RECORDS SUMMARY | 2019-05-24 16:59 | XMS REPORT | Continuity of Care Document ---
:1935 External Reference #:[id number] Author Name CHRISTIAN Diamond (transmitted by agent of provider Makenzie Alfaro) Address [address] [place] [address] Care Team Providers Name Role Phone Vladimir Jefferson M.D. - Urology Care Team Information Oracle Technical Architect Mary Navarro PA - Physician Patternmaker Pressure Cast Care Team Information Oracle Technical Architect Problems Active Problems Provider Date Fracture of [...] CPT Code Status Date Vaccine Lot # [id number] Given 01/11/2019 Fluzone High Dose 33623 Given 12/25/2017 Fluzone High Dose 77476 Given 12/19/2016 Pneumococcal Conjugate Vaccine 13 Valent For Intramuscular Use 95109 Given 12/19/2016 Fluzone High Dose 72616 Given 12/19/2015 Fluzone High Dose 12384 Given 01/05/2014 Fluzone High Dose 65868 Given 01/07/2013 Influenza Virus 3Yrs & Over 03239 Given 05/02/2011 Tdap - Tetanus/Diptheria/Acellular Pertussis 76877 Given 02/20/2010 Tetanus And Diptheria (Td) For Adult Use Preservative Free 95191 Given 12/29/2007 Pneumonia Vaccine 96770 Given 12/29/2007 Influenza Virus 3Yrs & Over 93568 Given 01/30/2006 Influenza Virus 3Yrs & Over 59843 Given 01/08/2005 Influenza Virus 3Yrs & Over 91756 Given 01/07/2002 Influenza Virus 3Yrs & Over 69292 Given 01/07/2000 Influenza Virus 3Yrs & Over 70268 Given 02/08/1999 Influenza Virus 3Yrs & Over 03676 Given 04/07/1995 Pneumonia Vaccine Vital Signs Date Vital Result Comment 04/30/2019 9:14am Heart Rate 48 /min BP Systolic Sitting 108 mmHg BP Diastolic Sitting 60 mmHg O2 % BldC Oximetry 90 % 04/05/2019 9:36am Height 59 inches 4'11" Weight 131.25 lb BP Systolic Sitting 120 mmHg BP Diastolic Sitting 50 mmHg Respiratory Rate 12 /min Body Temperature 98.0 F BMI (Body Mass Index) 26.5 kg/m2 Results Test Acquired Date Facility Test Result H/L Range Note Urine Culture And 12/15/2018 [facility] Urine SEE RESULT 1 , [address] [place] [address] [phone] [id number] 2 SEE RESULT BELOW Name: MARTINESGIANNA A : [address]: Mary GONZALES Acct: [id number] Unit: [id number] AGE: 83 Location: [facility] Re12/15/18 SEX: F Status: REG REF SPEC: [id number] GEORGE: 12/15/18-1615 [facility] DR: Mary GONZALES REQ: [id number] RECD: 12/15/18 STATUS: COMP _ SOURCE: [facility]: ORDERED: Urine Culture COMMENTS: [id number] QUERIES: Urine Source: Random Procedure Result Reported Site Urine Culture Final 12/19/18758 ML Organism 1 STREP AGALACTIAE - (GROUP B) [place] Count >100,000 (Many) CFU/ML Susceptibility testing of penicillins and other B-lactams approved by FDA for treatment of Streptococcus pyogenes (Group A Strep) and Streptococcus agalactiae (Group B Strep) is not necessary for clinical purposes and need not be done routinely, since as with vancomycin, resistant strains have not been recognized. (CLSI K951-S15;p.66) Positive isolates will be saved for one week. Please call the Microbiology Laboratory if further susceptibility testing is needed. * This is an updated result. * A prior result that was reported as final has been changed. Report corrected on: 12/19/18757 1. STREP AGALACTIAE - (GROUP B) [facility] RX --------- ------ Ampicillin <=0.25 S Penicillin <=0.12 S Levofloxacin 1 S Linezolid 2 S * Moxifloxacin 0.5 S * Quinupristin/Dalfopristin <=0.25 S CONTINUED ON NEXT PAGE DEPARTMENT OF PATHOLOGY, [address] [place] [address] Gabriel Colorado M.D. Director [facility] # [id number] Patient: GIANNA MARTINES [id number] (Continued) Specimen: [id number] Collected: 12/15/18 Received: 12/15/18-2001 (Continued) Procedure Result Reported Site Urine Culture Final (continued) 12/19/18- 0759 1. STREP AGALACTIAE - (GROUP B) (continued) [facility] RX --------- ------ Tetracycline >=16 R Tigecycline <=0.12 S Vancomycin <=0.5 S Imipenem-Deduced S * Ampicillin/Sulbactam-Deduced S Cefazolin-Deduced S * These antibiotics are not available in the [facility] Formulary Contact the Microbiology Department for any additional antibiotic reporting. * ML - Main Lab . END OF REPORT DEPARTMENT OF PATHOLOGY, [address] [place] [address] Gabriel Colorado M.D. 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 L82.1 Other seborrheic keratosis Z08 Encntr for follow-up exam after trtmt for malignant neoplasm Z85.828 Personal history of other malignant neoplasm of skin Office Visit 12/29/2018 2:15p [facility] Primary Care CHRISTIAN Diamond N39.0 Urinary tract infection, site not specified H90.2 Conductive hearing loss, unspecified Office Visit 12/15/2018 3:45p [facility] Primary CHRISTIAN Diamond R35.0 Frequency of Care micturition N39.0 Urinary tract infection, site not specified Assessments Date Code Description Provider 04/05/2019 Z00.01 Adult health examination CHRISTIAN Diamond [...] Appointment(s):07/05/2019 10:15 am - CHRISTIAN Diamond at [facility] Primary Care 8:00 am - Roger Dao MD at [facility] Dermatology AT [place] Functional Status Functional Condition Comment Date Status Bifocal glasses Active Hearing Aid in Both ears Active Mental Status Description No Information Available Referrals Description No Information Available
--- NOTE | 2019-05-24 17:05 | UC ---
UC General HPI - HPI Summary HPI Summary: Patient's 83-year-old female presents to urgent care with some swelling and redness of her left lower extremity. Patient had her AR without intervention in March of this year treated at [facility]. Patient is on anticoagulant. Patient has had problems with fluid balance since taking Lasix. Patient today home health nurse noticed that she had erythema of the left lower extremity when she took off her MYKEL stockings. Patient denies any pain. Patient has a low-grade fever here. No analgesic or antipyretic taken. Patient placed on any antibiotics currently. Patient without any other complaints. Patient denies discomfort and hernia her ankle. Patient's medications isn't in the EMR by triage was reviewed this visit. Per report, patient called her PCP or the home health aide did and was instructed to the emergency department but she came here first. - History of Current Complaint Stated Complaint: LEFT LEG SWELLING AND REDNESS Time Seen by Provider: 05/24/19 16:57 Hx Obtained From: Patient Onset/Duration: Gradual Onset Onset Severity: Mild Current Severity: Mild - Allergy/Home Medications Allergies/Adverse Reactions: Allergies Allergy/AdvReac Type Severity Reaction Status Date / Time Penicillins Allergy Difficulty Verified 05/24/19 17:08 Breathing sulfamethoxazole Allergy Diarrhea Verified 05/24/19 17:08 [From Bactrim] trimethoprim [From Bactrim] Allergy Diarrhea Verified 05/24/19 17:08 Home Medications: Home Medications Fluticasone-Salmeterol 500-50* [Advair Diskus 500-50*] 1 puff INH BID 08/21/13 [ History Confirmed 05/24/19] Metoprolol Tartrate TAB* [Lopressor TAB*] 25 mg PO DAILY 08/21/13 [History Confirmed 05/24/19] Omeprazole 20 mg PO DAILY 08/21/13 [History Confirmed 05/24/19] Amlodipine Besylate [Amlodipine 2.5 mg tab] 10 mg PO DAILY 05/24/19 [History Confirmed 05/24/19] Apixaban [Eliquis] 2.5 mg PO BID 05/24/19 [History Confirmed 05/24/19] Atorvastatin* [Lipitor 80 MG*] 80 mg PO DAILY 05/24/19 [History Confirmed ] Furosemide 40 mg PO DAILY 05/24/19 [History Confirmed 05/24/19] Levothyroxine Sodium 50 mcg PO DAILY 05/24/19 [History Confirmed 05/24/19] Metolazone TAB* [Zaroxolyn TAB*] 2.5 mg PO DAILY 05/24/19 [History Confirmed ] PMH/Surg Hx/FS Hx/Imm Hx Previously Healthy: No Endocrine History: Dyslipidemia Cardiovascular History: Cardiac Disease, Hypertension - Surgical History Surgical History: Yes Surgery Procedure, Year, and Place: MELANOMA EXCISED FOREHEA,, BILAT HIP REPLACEMENT. HERNIA REPAIR, C SECTION, [facility]. - Family History Known Family History: Positive: Non-Contributory - Social History Occupation: Retired Lives: With Family Alcohol Use: None Substance Use Type: None Review of Systems All Other Systems Reviewed And Are Negative: Yes Constitutional: Positive: Fever Skin: Positive: Other - erythema LLE ENT: Positive: Negative Respiratory: Positive: Negative Cardiovascular: Positive: Other - edema LE Gastrointestinal: Positive: Negative Genitourinary: Positive: Negative Musculoskeletal: Positive: Negative Physical Exam - Summary Physical Exam Summary: Vital Signs Reviewed: Yes A+Ox3, no distress Eyes: Conjunctiva Clear, ENT: Hearing grossly normal, mmmoist Neck: Positive: Supple Respiratory: Positive: No respiratory distress, No accessory muscle use + CTA throughout no w/r Cardiovascular: RRR nl s1, s2 no m/r CBT <2 sec 2+ edema b/l LE abd soft + BS nt/nd no guarding, no distension Musculoskeletal Exam: BARNETT x 4 without difficulty Strength Intact, ROM Intact Neurological: Positive: Alert, + sensation throughout Psychological: Positive: Normal Response To examiner Skin: Positive: no rash, + erythema anterior, lateral aspect LLE anterior/lerft lateral Triage Information Reviewed: Yes Course/Dx - Course Course Of Treatment: Patient presents to urgent care for evaluation of erythema and left lower extremity. Patient states it started today was somewhat a home health aid. Patient has had a low-grade fever. Patient has been having problems with edema since she had an AR in March. On exam vital show low-grade fever. Patient well-appearing and nontoxic. Patient does have warmth and erythema on the left lower extremity anterior lateral aspect as well as edema. Edema is symmetric on both sides. Patient is antegrade. Recommend patient continue murmurs from her for lab work and further evaluation. in agreement. We'll try further. Did call and speak to medical, temperature for regional medical murmur spelled as were patient's coming. Patient was given Tylenol prior to discharge. - Diagnoses Provider Diagnosis: Lower extremity cellulitis Discharge ED - Sign-Out/Discharge Documenting (check all that apply): Patient Departure All imaging exams completed and their final reports reviewed: No Studies - Discharge Plan Condition: Stable Disposition: HOME-RECOMMEND TO ED Patient Education Materials: Cellulitis (ED), Leg Edema (ED) Referrals: Deshawn Newton MD [Primary Care Provider] - Additional Instructions: The doctor that evaluated you today thinks that you need additional testing that can be completed the emergency department. It is recommended that you go directly to emergency department for further evaluation. This evaluation may include blood work or imaging. This testing will be directed and decided by the provider that evaluate you at the emergency department. If pain becomes worse, you feel lightheaded, you have uncontrolled vomiting, or you have any other concerns while you are being driven to emergency department as recommended to pullover and contact 911. - Billing Disposition and Condition Condition: STABLE Disposition: Home-Recommend to ED
[2019-05-24 17:07] VITALS: BP 137/67
[2019-05-24] MEDS ORDERED: Acetaminophen TAB* 325 MG PO ONE (17:29)
== END 2019-05-24 17:37 | disposition home health service (06) ==
LOC: UCCORT 16:47
DX: L03.116 Cellulitis of left lower limb (principal); I10 Essential (primary) hypertension; E78.5 Hyperlipidemia, unspecified; I51.9 Heart disease, unspecified; Z88.0 Allergy status to penicillin; Z88.2 Allergy status to sulfonamides; Z79.899 Other long term (current) drug therapy; Z79.01 Long term (current) use of anticoagulants
CPT/HCPCS: 99212; A9270-GY; G0463